=== PATIENT | female | born 1975 | race Caucasian/White ===

== ENCOUNTER 2017-05-13 08:24 | Emergency (ER) | payer OTHER ==
[~2017-05-13] VITALS: Ht 160 cm; Wt 79.8 kg
[~2017-05-13 08:24] MED LIST: Asacol PO; MACROBID100 MG PO; NOHOMEMEDS; Percocet 5/325,Endoc PO; Protonix PO; Xifaxan PO
[2017-05-13 09:06] LABS: HEMATOCRIT 33.4 % (36.0-46.0); HEMOGLOBIN 10.5 G/DL (11.9-15.5); MCHC 31.4 G/DL (30.0-36.0); MCV 79.5 FL (83-99); PLATELET COUNT 306 K/uL (156-360); RBC DIS.WIDTH-CV 15.2 % (11.8-14.6); RBC DIS.WIDTH-SD 43.7 % (39-53); WHITE BLOOD COUNT 13.6 K/uL (4.1-10.2)
[2017-05-13 09:15] LABS: ALBUMIN 4.1 g/dL (3.2-4.8); CHLORIDE 105 mEq/L (99-109); POTASSIUM 3.6 mEq/L (3.7-5.4); SODIUM 140 mEq/L (136-147)
[2017-05-13 09:18] LABS: GLUCOSE 99 mg/dL (70-99); TOTAL PROTEIN 7.2 g/dL (6.4-8.3)
[2017-05-13 09:19] LABS: TOTAL BILIRUBIN 0.6 mg/dL (0.0-1.0)
[2017-05-13 09:21] LABS: ALKALINE PHOSPHATASE 53 IU/L (3-129); CREATININE 0.8 mg/dL (0.6-1.3); GFR ESTIMATE (CALCULATED) > 59 mL/min/
[2017-05-13 09:22] LABS: UREA NITROGEN (BUN) 14 mg/dL (9-23)
[2017-05-13 09:23] LABS: AST (GOT) 11 IU/L (2-34)
[2017-05-13 09:24] LABS: ALT (GPT) 11 IU/L (3-49)
[2017-05-13 09:25] LABS: LIPASE 36 U/L (1.0-51.0)
[2017-05-13 09:32] LABS: QUANTITATIVE HCG < 4.0 MIU/ML
[2017-05-13 10:52] LABS: APPEARANCE SL.HAZY ((CLEAR)); BILIRUBIN NEGATIVE; BLOOD NEGATIVE; COLOR YELLOW ((YELLOW)); GLUCOSE (STRIP) NEGATIVE; KETONES NEGATIVE; LEUKOCYTES LARGE; NITRITE NEGATIVE; PROTEIN (STRIP) 30; UROBILINOGEN 0.2 MG/DL (0.2-1.0)
[2017-05-13 10:58] LABS: BACTERIA RARE /HPF; EPITHELIAL CELLS 3+ /HPF; MUCUS TRACE /LPF; RED BLOOD CELLS 15-20 /HPF (0-5); UCUL ADDED? NO; WHITE BLOOD CELLS 0-5 /HPF (0-5)
[2017-05-13] MEDS ORDERED: BENTYL20 MG PO (11:27)
[2017-05-13] MEDS ORDERED: CIPRO500 MG PO (11:27)
[2017-05-13] MEDS ORDERED: FLAGYL500 MG PO (11:27)
[2017-05-13 11:53] LABS: SPECIFIC GRAVITY 1.066 (1.000-1.030)
[2017-05-13] MEDS ORDERED: ULTRAM50 MG PO (11:57)
[2017-05-13 12:06] VITALS: BP 149/97
== END 2017-05-13 12:08 | disposition home or self-care (01) ==
LOC: EME 08:24
PROVIDERS: Nurse Practitioner Family
DX: K57.32 Diverticulitis of large intestine without perforation or abscess without bleeding (principal); D25.9 Leiomyoma of uterus, unspecified; K21.9 Gastro-esophageal reflux disease without esophagitis; Z88.5 Allergy status to narcotic agent
CPT/HCPCS: 74177; 80053; 81003; 83690; 84702; 85027; 99281; 99285